=== PATIENT | female | born 1995 | race Asian ===

== ENCOUNTER 2023-08-28 16:01 | Emergency (ER) | payer BC, SELFPAY ==
[2023-08-28 16:21] VITALS: BP 150/100; PULSE 84; RESP 18; TEMP 36.3; O2SAT 98
--- NOTE | 2023-08-28 16:44 | ED.URI ---
HPI - URI/Sore Throat General Chief Complaint: Upper Respiratory Infection Stated Complaint: Bodyaches,Chills,Congestion,Chest Pain,Cough Time Seen by Provider: 08/28/23 16:29 Source: patient and RN notes reviewed Mode of arrival: ambulatory Limitations: no limitations History of Present Illness HPI Narrative: Patient presents today with a 3 day history of fever up to 100, congestion, body chills sore throat, headache, fatigue. She has been taking DayQuil and NyQuil with some relief and currently rates her pain 6/10. Patient works at a school with multiple sick contacts. Related Data Home Medications Medication Instructions Recorded Confirmed fluoxetine 40 mg capsule 40 mg PO DAILY 12/25/22 08/28/23 trazodone 50 mg tablet 50 mg PO HS 12/25/22 08/28/23 lisdexamfetamine 30 mg capsule 30 mg PO DAILY 08/28/23 08/28/23 (Vyvanse) Allergies Allergy/AdvReac Type Severity Reaction Status Date / Time Penicillins AdvReac Mild Hives Verified 08/28/23 16:26 Review of Systems Review of Systems: CONSTITUTIONAL: + body aches, chills, fever, fatigue EYES: Denies visual changes, redness, or discharge. ENT: Denies rhinorrhea, or otalgia.+ sore throat, congestion CARDIOVASCULAR: Denies chest pain, palpitations, or edema. RESPIRATORY: Denies cough or dyspnea. GASTROINTESTINAL: Denies abdominal pain, nausea, vomiting, or diarrhea. GENITOURINARY: Denies dysuria or hematuria. SKIN: Denies rash, itching, or wounds. MUSCULOSKELETAL: Denies back pain, joint pain, or myalgia. NEUROLOGIC: Denies numbness, tingling, or weakness.+ headache PSYCH: Denies depression or anxiety. [facility] Social History Social History Smoking status: Never smoker Alcohol intake: current Drinks per week: 2 Substance use: current Substance use type: marijuana Lack of Transportation: No Lack of Food: Never True Current Housing: I Have Housing Concerned About Future Housing: No Difficulty Paying Gas/Electric Bills: No Difficulty Paying for Meds: No Currently Unemployed: No Education: Bachelor's Degree Difficulty w/ Childcare or Family Care: No Living arrangements: with family Occupation/Education: occupation Gender identity (if verbalized by the patient): Female Sexual Orientation (if Verbalized by the Patient): Straight or Heterosexual Spiritual care concerns: No Comments At time of signature, I have reviewed and agree with nursing past medical, surgical, social and family history unless otherwise noted. Please see nursing chart for further information. There is no relevant family history pertinent to the presenting complaint Exam Narrative: GENERAL: Mildly ill-appearing, well-nourished, and in no acute distress. HEAD: Normocephalic, atraumatic. EYES: EOMI. No redness or drainage. Conjunctivae normal. ENT: Mucous membranes pink and moist. Nares congested. No rhinorrhea. TMs normal bilaterally. Throat erythematous and edematous. Tonsils 3+ without exudate. Uvula midline. NECK: Normal AROM. Supple. No lymphadenopathy. CHEST: No respiratory distress. Clear to auscultation. HEART: Regular rate and rhythm. No murmur appreciated. EXTREMITIES: Normal range of motion. No edema. SKIN: Warm, dry, no rash. Capillary refill normal. Normal skin turgor. NEURO: No focal deficits. Alert and oriented x3. Gait steady. PSYCH: Normal affect. No signs of depression or anxiety. Course Course Level of Care: Express Care Visit Vital Signs Vital signs: Vital Signs Temperature 97.4 F L 08/28/23 16:21 Pulse Rate 84 08/28/23 16:21 Respiratory Rate 18 08/28/23 16:21 Blood Pressure 150/100 H 08/28/23 16:21 Pulse Oximetry 98 08/28/23 16:21 Oxygen Delivery Room Air 08/28/23 16:21 Temperature 97.4 F L 08/28/23 16:21 Pulse Rate 84 08/28/23 16:21 Respiratory Rate 18 08/28/23 16:21 Blood Pressure 150/100 H 08/28/23 16:21 Pulse
== END 2023-08-28 16:47 | disposition home or self-care (01) ==
PROVIDERS: Emergency Provider Nurse Practitioner; PCP Family Medicine
DX: B34.9 Viral infection, unspecified (principal); Z20.822 Contact with and (suspected) exposure to COVID-19; F12.90 Cannabis use, unspecified, uncomplicated
CPT/HCPCS: 87081; 87426; 87804; 87880; 99213; G0463